=== PATIENT | female | born 1990 | race African-American/Black ===

== ENCOUNTER 2017-03-07 01:53 | Emergency (ER) | payer SELFPAY ==
[~2017-03-07] VITALS: Ht 180.3 cm; Wt 73.0 kg
[2017-03-07] MEDS ORDERED: BACITRACIN ZINC OINT UDPKT TOP ONE (02:45)
[2017-03-07] MEDS ORDERED: TETANUS, DIPHTHERIA, PERTUSSIS VAC/PF 0.5ML (>7YR OLD) IM ONE (02:45)
[2017-03-07] MEDS ORDERED: LIDOCAINE HCL 1% 20ML VIAL (Pyxis) INJ MC ONE (03:45)
[2017-03-07 04:07] VITALS: BP 128/78
== END 2017-03-07 04:16 | disposition home or self-care (01) ==
LOC: ER 01:53
DX: S01.81XA Laceration without foreign body of other part of head, initial encounter (principal); X58.XXXA Exposure to other specified factors, initial encounter; Y93.89 Activity, other specified; Y92.89 Other specified places as the place of occurrence of the external cause; Y99.8 Other external cause status; Z88.8 Allergy status to other drugs, medicaments and biological substances
CPT/HCPCS: 12011; 99283; J3490; Z7610

== ENCOUNTER 2020-02-11 15:43 | Inpatient (IN) | payer MEDICAID ==
[~2020-02-11] VITALS: Ht 165.1 cm; Wt 89.9 kg
[2020-02-11 16:44] LABS: BASOPHILS % 0.9 % (0.0-2.0); EOSINOPHILS % 1.9 % (0.0-5.0); HEMATOCRIT. 34.7 % (36.0-48.0); HEMOGLOBIN. 11.3 g/dL (12.0-16.0); LYMPHOCYTES % 35.2 % (20.0-50.0); MEAN CORPUSCULAR HEMOGLOBIN 28.7 pg (28.0-32.0); MEAN CORPUSCULAR VOLUME 87.9 fL (81.0-99.0); MONOCYTES % 8.7 % (2.0-8.0); NEUTROPHILS % 53.3 % (40.0-76.0); PLATELET 208 x1000/uL (130-400); RED BLOOD CELL COUNT 3.95 mill/uL (4.2-5.4); RED CELL DISTRIBUTION WIDTH 13.9 % (11.6-14.6)
[2020-02-11 16:45] LABS: CLARITY URINE CLEAR (CLEAR); COLOR URINE YELLOW (YELLOW); KETONES URINE NEGATIVE (NEGATIVE); LEUKOCYTE ESTERASE URINE 2+ (NEGATIVE); NITRITE URINE NEGATIVE (NEGATIVE); OCCULT BLOOD URINE NEGATIVE (NEGATIVE); PH URINE 6.5 (4.5-8.0); PROTEIN URINE NEGATIVE (NEGATIVE); SPECIFIC GRAVITY URINE 1.015 (1.005-1.030); UROBILINOGEN URINE 0.2 E.U./dL (0.2-1.0)
[2020-02-11] MEDS ORDERED: LEVETIRACETAM 500MG PREMIX 100 ML IV ONE (16:45)
[2020-02-11 16:51] LABS: CHLORIDE 108 mEq/L (98-107)
[2020-02-11 16:52] LABS: INR 0.9
[2020-02-11] MEDS ORDERED: CEFTRIAXONE 1 G PREMIX 50 ML IV ONE (17:30)
[2020-02-11] MEDS ORDERED: ACETAMINOPHEN 325MG TABLET PO PRN ×2 (20:30)
[2020-02-11] MEDS ORDERED: ONDANSETRON HCL 4MG/2ML INJ IV PRN (20:30)
[2020-02-11] MEDS ORDERED: LORAZEPAM 2MG/ML CPJ IV PRN (20:30)
[2020-02-11 22:40] VITALS: BP 104/45
[2020-02-11] MEDS ORDERED: FERR236T3 MT (23:21)
[2020-02-11] MEDS ORDERED: KEPP500 MT (23:21)
[2020-02-11] MEDS ORDERED: PREN-176 MT (23:21)
[2020-02-11] MEDS: LEVETIRACETAM 500MG TABLET PO SCH (23:24)
[2020-02-12 04:00] VITALS: BP 94/48
[2020-02-12 08:00] VITALS: BP 105/59
[2020-02-12 08:03] LABS: BASOPHILS % 0.7 % (0.0-2.0); EOSINOPHILS % 2.1 % (0.0-5.0); HEMOGLOBIN. 11.3 g/dL (12.0-16.0); LYMPHOCYTES % 44.1 % (20.0-50.0); MEAN CORPUSCULAR HEMOGLOBIN 29.2 pg (28.0-32.0); MEAN CORPUSCULAR VOLUME 87.6 fL (81.0-99.0); MEAN PLATELET VOLUME 8.1 fl (7.4-10.4); MONOCYTES % 9.6 % (2.0-8.0); NEUTROPHILS % 43.5 % (40.0-76.0); PLATELET 209 x1000/uL (130-400); RED BLOOD CELL COUNT 3.88 mill/uL (4.2-5.4); RED CELL DISTRIBUTION WIDTH 13.5 % (11.6-14.6)
[2020-02-12 08:16] LABS: CHLORIDE 108 mEq/L (98-107)
[2020-02-12] MEDS: LEVETIRACETAM 500MG TABLET PO SCH ×2 (08:17→21:19)
[2020-02-12] MEDS: PRENATAL VIT/FE FUMARATE/FA TABLET PO SCH (08:18)
[2020-02-12 08:23] LABS: PHOSPHORUS 3.7 mg/dL (2.5-4.9)
[2020-02-12] MEDS ORDERED: CEFTRIAXONE 1 G PREMIX 50 ML IV SCH (09:00)
[2020-02-12] MEDS ORDERED: LEVETIRACETAM 500MG TABLET PO SCH (09:00)
[2020-02-12 11:43] VITALS: BP 105/51
[2020-02-12 16:00] VITALS: BP 110/61
[2020-02-12 16:46] LABS: *AMPHETAMINES SCREEN URINE NEGATIVE (NEGATIVE); *BARBITURATES SCREEN URINE NEGATIVE (NEGATIVE); *BENZODIAZEPINES SCREEN URINE NEGATIVE (NEGATIVE); METHADONE URINE SCREEN NEGATIVE (NEGATIVE)
[2020-02-12 16:47] LABS: *COCAINE SCREEN URINE PRESUMTIVE POSITIVE (NEGATIVE); CANNABINOID URINE SCREEN NEGATIVE (NEGATIVE); OPIATES URINE SCREEN NEGATIVE (NEGATIVE); PHENCYCLIDINE URINE SCREEN NEGATIVE (NEGATIVE)
[2020-02-12] MEDS ORDERED: CEFTRIAXONE 1,000 MG in DEXTROSE 5% WATER 50 ML IV SCH (18:00)
[2020-02-12 20:00] VITALS: BP 90/45
[2020-02-13] VITALS: BP 103/50
[2020-02-13 04:00] VITALS: BP 96/56
[2020-02-13 08:00] VITALS: BP 97/57
[2020-02-13] MEDS: PRENATAL VIT/FE FUMARATE/FA TABLET PO SCH (08:59)
[2020-02-13] MEDS: LEVETIRACETAM 500MG TABLET PO SCH (08:59)
[2020-02-13 09:54] VITALS: BP 100/57
[2020-02-13] MEDS ORDERED: MAGNESIUM OXIDE 400MG TABLET PO SCH ×2 (10:00)
[2020-02-13 12:00] VITALS: BP 106/60
== END 2020-02-13 14:38 | disposition home or self-care (01) | DRG 566 ==
LOC: ER 15:43 → EDBEDREQTM 17:26 → EDBEDREQ 17:26 → EDBEDREQSVC 17:26 → 6WST 18:52 → EDBEDREQ 18:56 → EDBEDREQTM 18:56 → ENRESERV 20:55
PROVIDERS: ADMIT Internal Medicine; ATTEND Internal Medicine
DX: O99.352 Diseases of the nervous system complicating pregnancy, second trimester (principal); O23.42 Unspecified infection of urinary tract in pregnancy, second trimester; O26.892 Other specified pregnancy related conditions, second trimester; O99.012 Anemia complicating pregnancy, second trimester; O25.12 Malnutrition in pregnancy, second trimester; O99.332 Smoking (tobacco) complicating pregnancy, second trimester; O99.322 Drug use complicating pregnancy, second trimester; G40.909 Epilepsy, unspecified, not intractable, without status epilepticus; F14.10 Cocaine abuse, uncomplicated; F17.210 Nicotine dependence, cigarettes, uncomplicated; E43 Unspecified severe protein-calorie malnutrition; D64.9 Anemia, unspecified; G92 Toxic encephalopathy; Z3A.20 20 weeks gestation of pregnancy
CPT/HCPCS: 36415; 76805; 80053; 80305; 81003; 83036; 83735; 84100; 85025; 93970; 99285; J0696; J1953; J7060

== ENCOUNTER 2020-06-29 17:24 | Inpatient (IN) | payer MEDICAID ==
[~2020-06-29] VITALS: Ht 165.1 cm; Wt 74.8 kg
[~2020-06-29 17:24] MED LIST: FERR236T3 MT; KEPP500 MT; PREN-176 MT
[2020-06-29] MEDS ORDERED: CARBOPROST TROMETHAMINE 250 MCG/ML AMPUL IM PRN (18:15)
[2020-06-29] MEDS ORDERED: NALOXONE HCL 0.4 MG/ML 1ML VIAL IM PRN (18:15)
[2020-06-29] MEDS ORDERED: MISOPROSTOL 100MCG TABLET VG SCH (18:15)
[2020-06-29] MEDS ORDERED: BUTORPHANOL TARTRATE 2 MG/ML VIAL IV PRN (18:15)
[2020-06-29] MEDS ORDERED: METHYLERGONOVINE MALEATE 0.2 MG/ML IM PRN (18:15)
[2020-06-29] MEDS ORDERED: DEXT 5%/LR + PITOCIN 20UNITS/L 1,000 ML IV SCH ×3 (18:15→23:30)
[2020-06-29] MEDS ORDERED: LIDOCAINE HCL 1% 20ML VIAL (Pyxis) INJ INFIL SCH (18:15)
[2020-06-29 18:48] LABS: BASOPHILS % 0.9 % (0.0-2.0); EOSINOPHILS % 1.2 % (0.0-5.0); HEMATOCRIT. 32.5 % (36.0-48.0); HEMOGLOBIN. 10.9 g/dL (12.0-16.0); LYMPHOCYTES % 31.5 % (20.0-50.0); MEAN CORPUSCULAR HEMOGLOBIN 28.5 pg (28.0-32.0); MEAN PLATELET VOLUME 8.1 fl (7.4-10.4); MONOCYTES % 8.3 % (2.0-8.0); NEUTROPHILS % 58.1 % (40.0-76.0); PLATELET 204 x1000/uL (130-400); RED BLOOD CELL COUNT 3.82 mill/uL (4.2-5.4); RED CELL DISTRIBUTION WIDTH 13.5 % (11.6-14.6)
[2020-06-29] MEDS: LACTATED RINGERS 1,000 ML IV SCH ×2 (18:52→21:52)
[2020-06-29 19:00] LABS: INR 0.9; PARTIAL THROMBOPLASTIN TIME 27.1 sec (23.4-31.0); PROTHROMBIN TIME 9.4 sec (9.6-11.0)
[2020-06-29 19:17] LABS: CLARITY URINE CLEAR (CLEAR); COLOR URINE YELLOW (YELLOW); KETONES URINE NEGATIVE (NEGATIVE); LEUKOCYTE ESTERASE URINE 2+ (NEGATIVE); NITRITE URINE NEGATIVE (NEGATIVE); OCCULT BLOOD URINE NEGATIVE (NEGATIVE); PH URINE 7.5 (4.5-8.0); PROTEIN URINE NEGATIVE (NEGATIVE); SPECIFIC GRAVITY URINE 1.015 (1.005-1.030)
[2020-06-29] MEDS ORDERED: PENICILLIN G POTASSIUM 5 MMU in DEXT 5% WATER 100 ML IV SCH (19:30)
[2020-06-29 19:40] LABS: *AMPHETAMINES SCREEN URINE NEGATIVE (NEGATIVE)
[2020-06-29 19:41] LABS: *BARBITURATES SCREEN URINE NEGATIVE (NEGATIVE); *BENZODIAZEPINES SCREEN URINE NEGATIVE (NEGATIVE); METHADONE URINE SCREEN NEGATIVE (NEGATIVE); PHENCYCLIDINE URINE SCREEN NEGATIVE (NEGATIVE)
[2020-06-29 19:42] LABS: OPIATES URINE SCREEN NEGATIVE (NEGATIVE)
[2020-06-29 20:01] LABS: HEPATITIS B SURFACE ANTIGEN NEGATIVE
[2020-06-29] MEDS: LEVETIRACETAM 500MG TABLET PO SCH (20:26)
[2020-06-29 20:28] LABS: *COCAINE SCREEN URINE PRESUMTIVE POSITIVE (NEGATIVE); CANNABINOID URINE SCREEN PRESUMTIVE POSITIVE (NEGATIVE)
[2020-06-29] MEDS ORDERED: AZITHROMYCIN 500 MG in DEXT 5% WATER 250 ML IV SCH (20:30)
[2020-06-29] MEDS: AMPICILLIN 2,000 MG in SODIUM CHLORIDE 0.9% 100 ML IV SCH (20:38)
[2020-06-29] MEDS ORDERED: ROPIVACAINE HCL/PF EPIDURAL 200 ML EPI SCH (21:45)
[2020-06-30] MEDS ORDERED: PENICILLIN G POTASSIUM 2.5 MMU in DEXTROSE 5% WATER 50 ML IV SCH ×2
[2020-06-30] MEDS: AMPICILLIN 2,000 MG in SODIUM CHLORIDE 0.9% 100 ML IV SCH (00:48)
[2020-06-30] MEDS ORDERED: LORAZEPAM 2MG/ML CPJ ONE (03:26)
[2020-06-30] MEDS ORDERED: LORAZEPAM 2MG/ML CPJ IV NR (03:30)
[2020-06-30] MEDS ORDERED: MORPHINE SULFATE/PF 1MG/ML 10ML AMP ONE (03:36)
[2020-06-30] MEDS ORDERED: FENTANYL CITRATE/PF 50MCG/ML 2ML VIAL ONE (03:36)
[2020-06-30] MEDS ORDERED: SODIUM CHLORIDE 0.9% 10ML VIAL ONE (04:04)
[2020-06-30] MEDS ORDERED: PHENYLEPHRINE HCL 10 MG/ML 1ML (IV VIAL) IV ONE (04:04)
[2020-06-30] MEDS ORDERED: CEFAZOLIN SODIUM 1000MG/VIAL ONE (04:04)
[2020-06-30] MEDS ORDERED: ONDANSETRON HCL 4MG/2ML INJ ONE (04:04)
[2020-06-30] MEDS ORDERED: OXYTOCIN 10 UNITS/ML 1ML ONE (04:04)
[2020-06-30] MEDS ORDERED: METOCLOPRAMIDE HCL 10MG/2ML VIAL ONE (04:04)
[2020-06-30] MEDS ORDERED: EPHEDRINE SULFATE 50MG/ML VIAL ONE (04:04)
[2020-06-30] MEDS ORDERED: ACETAMINOPHEN WITH CODEINE 300/30MG TABLET PO PRN (04:15)
[2020-06-30] MEDS ORDERED: MEPERIDINE HCL/PF 25MG/ML CPJ IV PRN (04:15)
[2020-06-30] MEDS ORDERED: METOCLOPRAMIDE HCL 10MG/2ML VIAL IV PRN (04:15)
[2020-06-30] MEDS ORDERED: ONDANSETRON HCL 4MG/2ML INJ IV PRN (04:15)
[2020-06-30] MEDS ORDERED: BISACODYL 10MG SUPP PR PRN (04:45)
[2020-06-30] MEDS ORDERED: KETOROLAC 30MG/ML VIAL IV PRN (04:45)
[2020-06-30] MEDS ORDERED: SODIUM CHLORIDE 0.9% 1,000 ML IV NR (04:45)
[2020-06-30] MEDS ORDERED: RHO(D) IMMUNE GLOBULIN 300 MCG/SYR IM PRN (04:45)
[2020-06-30] MEDS ORDERED: IBUPROFEN 400MG TABLET PO PRN (04:45)
[2020-06-30] MEDS: DEXT 5%/LR + PITOCIN 20UNITS/L 1,000 ML IV SCH ×2 (04:53→10:35)
[2020-06-30 06:05] VITALS: BP 120/77
[2020-06-30 06:35] VITALS: BP 124/79
[2020-06-30 07:32] VITALS: BP 118/74
[2020-06-30] MEDS: KETOROLAC 30MG/ML VIAL IV SCH ×3 (08:00→21:17)
[2020-06-30] MEDS: LEVETIRACETAM 500MG TABLET PO SCH ×2 (08:59→20:49)
[2020-06-30] MEDS: PRENATAL VIT/FE FUMARATE/FA TABLET PO SCH (09:00)
[2020-06-30 16:03] VITALS: BP 115/77
[2020-06-30 19:30] VITALS: BP 110/73
[2020-06-30] MEDS ORDERED: AZITHROMYCIN 250 MG in DEXT 5% WATER 250 ML IV SCH (20:30)
[2020-06-30] MEDS: LACTATED RINGERS 1,000 ML IV SCH (23:46)
[2020-06-30 23:55] VITALS: BP 105/70
[2020-07-01 04:00] VITALS: BP 113/67
[2020-07-01 07:53] VITALS: BP 91/59
[2020-07-01] MEDS: PRENATAL VIT/FE FUMARATE/FA TABLET PO SCH (08:08)
[2020-07-01] MEDS: IBUPROFEN 800MG TABLET PO PRN ×3 (08:09→21:12)
[2020-07-01] MEDS: LEVETIRACETAM 500MG TABLET PO SCH ×2 (08:09→21:12)
[2020-07-01 11:08] LABS: BASOPHILS % 0.4 % (0.0-2.0); EOSINOPHILS % 0.3 % (0.0-5.0); HEMATOCRIT. 32.1 % (36.0-48.0); HEMOGLOBIN. 10.3 g/dL (12.0-16.0); LYMPHOCYTES % 15.3 % (20.0-50.0); MEAN CORPUSCULAR HEMOGLOBIN 27.8 pg (28.0-32.0); MEAN CORPUSCULAR VOLUME 86.3 fL (81.0-99.0); MONOCYTES % 5.1 % (2.0-8.0); NEUTROPHILS % 78.9 % (40.0-76.0); PLATELET 208 x1000/uL (130-400); RED BLOOD CELL COUNT 3.71 mill/uL (4.2-5.4); RED CELL DISTRIBUTION WIDTH 13.2 % (11.6-14.6)
[2020-07-01 15:45] VITALS: BP 98/62
[2020-07-01 19:30] VITALS: BP 100/60
[2020-07-02] MEDS: IBUPROFEN 800MG TABLET PO PRN (03:38)
[2020-07-02 03:52] VITALS: BP 113/60
[2020-07-02 08:11] VITALS: BP 112/64
[2020-07-02] MEDS: LEVETIRACETAM 500MG TABLET PO SCH (09:21)
[2020-07-02] MEDS: PRENATAL VIT/FE FUMARATE/FA TABLET PO SCH (09:21)
[2020-07-06 04:09] LABS: CANNABINOID CONFIRMATION URINE Positive (.); COCAINE CONFIRMATION URINE Positive (.)
== END 2020-07-02 13:00 | disposition home or self-care (01) | DRG 540 ==
LOC: 8 EST LDRP 17:24 → OBSVTOIN 17:24 → 8EST 06-30 05:50
PROVIDERS: ADMIT Obstetrics & Gynecology; ATTEND Obstetrics & Gynecology
PROC: 10D00Z1 Extraction of Products of Conception, Low, Open Approach (ICD-10-PCS; principal; 2020-06-30)
PROC: 30233S1 Transfusion of Nonautologous Globulin into Peripheral Vein, Percutaneous Approach (ICD-10-PCS; 2020-07-01)
DX: O32.4XX0 Maternal care for high head at term, not applicable or unspecified (principal); O62.1 Secondary uterine inertia; Z3A.40 40 weeks gestation of pregnancy; Z37.0 Single live birth; Z88.8 Allergy status to other drugs, medicaments and biological substances; Z20.822 Contact with and (suspected) exposure to COVID-19; F14.11 Cocaine abuse, in remission; F12.11 Cannabis abuse, in remission; Z86.69 Personal history of other diseases of the nervous system and sense organs
CPT/HCPCS: 36415; 76805; 76818; 80305; 80349; 80353; 81003; 82542; 85025; 86592; 86703; 86762; 86850; 86870; 86886; 86900; 87340; 87426; 88307; 90384; 99281; J0290; J0456; J0690; J1885; J2060; J2274; J2370; J2405; J2540; J2590; J2765; J2795; J3010; J3490; J7050; J7060

== ENCOUNTER 2022-05-18 08:00 | Emergency (ER) | payer MEDICAID ==
[~2022-05-18] VITALS: Ht 165.1 cm; Wt 64.0 kg
[2022-05-18 09:14] LABS: CHLORIDE 107 mEq/L (98-107)
[2022-05-18 09:19] LABS: BASOPHILS % 0.3 % (0.0-2.0); EOSINOPHILS % 2.1 % (0.0-5.0); HEMATOCRIT. 35.3 % (36.0-48.0); HEMOGLOBIN. 11.5 g/dL (12.0-16.0); LYMPHOCYTES % 14.9 % (20.0-50.0); MEAN CORPUSCULAR HEMOGLOBIN 28.3 pg (28.0-32.0); MEAN CORPUSCULAR VOLUME 86.5 fL (81.0-99.0); MEAN PLATELET VOLUME 7.6 fl (7.4-10.4); MONOCYTES % 6.2 % (2.0-8.0); NEUTROPHILS % 76.5 % (40.0-76.0); PLATELET 276 x1000/uL (130-400); RED BLOOD CELL COUNT 4.08 mill/uL (4.2-5.4); RED CELL DISTRIBUTION WIDTH 14.3 % (11.6-14.6)
[2022-05-18 09:24] LABS: ETHANOL BLOOD < 10 mg/dL
[2022-05-18 10:15] VITALS: BP 123/85
[2022-05-18 10:19] LABS: HCG SCREEN NEGATIVE
[2022-05-18] MEDS ORDERED: NALO4SPR BOTHNSTRLS (12:31)
[2022-05-18 12:51] LABS: CLARITY URINE TURBID (CLEAR); COLOR URINE RED (YELLOW); KETONES URINE NEGATIVE (NEGATIVE); LEUKOCYTE ESTERASE URINE 3+ (NEGATIVE); NITRITE URINE POSITIVE (NEGATIVE); OCCULT BLOOD URINE 2+ (NEGATIVE); PH URINE 6.5 (4.5-8.0); PROTEIN URINE 2+ (NEGATIVE); SPECIFIC GRAVITY URINE 1.015 (1.005-1.030); UROBILINOGEN URINE 0.2 E.U./dL (0.2-1.0)
== END 2022-05-18 14:17 | disposition home or self-care (01) ==
LOC: ER 08:00
DX: T40.5X1A Poisoning by cocaine, accidental (unintentional), initial encounter (principal); F14.10 Cocaine abuse, uncomplicated; Y92.89 Other specified places as the place of occurrence of the external cause
CPT/HCPCS: 36415; 80053; 80307; 80320; 80329; 81003; 84703; 85025; 87086; 93005; 99284; Z7610; G0480

== ENCOUNTER 2024-07-03 01:23 | Emergency (ER) | payer MEDICAID ==
[~2024-07-03] VITALS: Ht 167.6 cm; Wt 73.0 kg
[2024-07-03 01:23] VITALS: BP 136/88; PULSE 88; RESP 16; TEMP 98.3; O2SAT 98
[~2024-07-03 01:23] MED LIST changes: +CEPH500C2 MT; -FERR236T3 MT; -KEPP500 MT; +NALO4SPR BOTHNSTRLS; -PREN-176 MT; +SILV20CR13 TP
[2024-07-03] MEDS ORDERED: OFLO5DRO4 EACH EAR (02:38)
== END 2024-07-03 02:54 | disposition home or self-care (01) ==
LOC: ER 01:23
DX: H60.92 Unspecified otitis externa, left ear (principal); Z88.8 Allergy status to other drugs, medicaments and biological substances; Z79.899 Other long term (current) drug therapy
CPT/HCPCS: 99283